=== PATIENT | female | born 1995 | race Caucasian/White ===

== ENCOUNTER 2019-06-27 03:03 | Emergency (ER) | payer BC ==
[~2019-06-27] VITALS: Ht 170.2 cm; Wt 70.3 kg
[2019-06-27 03:17] VITALS: BP 123/61
[2019-06-27 03:50] LABS: Urine Bacteria MOD /hpf (None Seen); Urine Blood 3+ /uL (Negative); Urine Mucus FEW (None Seen); Urine WBC 1128 /hpf (0 - 5); Urine WBC Clumps PRESENT /hpf (None Seen)
== END 2019-06-27 04:19 | disposition home or self-care (01) ==
LOC: ER 03:07
DX: N39.0 Urinary tract infection, site not specified (principal); R39.15 Urgency of urination; R35.0 Frequency of micturition
CPT/HCPCS: 81001

== ENCOUNTER 2019-12-16 19:38 | Emergency (ER) | payer BC ==
[~2019-12-16] VITALS: Ht 170.2 cm; Wt 72.6 kg
[2019-12-16] MEDS ORDERED: KETOROLAC TROMETH 60MG/2ML VIAL IM ONE (20:30)
[2019-12-16 21:00] VITALS: BP 136/90
== END 2019-12-16 21:32 | disposition home or self-care (01) ==
LOC: ER 19:38
DX: K05.20 Aggressive periodontitis, unspecified (principal); M27.2 Inflammatory conditions of jaws; Z87.440 Personal history of urinary (tract) infections
CPT/HCPCS: 96372; 99283; J1885

== ENCOUNTER 2022-06-29 12:03 | Emergency (ER) | payer BC, MEDICAID ==
[~2022-06-29] VITALS: Ht 167.6 cm; Wt 73.0 kg
[2022-06-29 13:14] VITALS: BP 133/90
[2022-06-29] MEDS ORDERED: IBUP600T28 PO (13:53)
[2022-06-29] MEDS ORDERED: IBUPROFEN 600 MG TAB PO ONE ×2 (14:00→14:30)
[2022-06-29] MEDS ORDERED: cefTRIAXone SOD 1,000 MG VL IM ONE (14:00)
[2022-06-29] MEDS ORDERED: [UNRECOGNIZED DRUG - CODE] OT (14:50)
== END 2022-06-29 14:48 | disposition home or self-care (01) ==
LOC: ER 12:03
DX: H66.93 Otitis media, unspecified, bilateral (principal)
CPT/HCPCS: 96372; 99283; J0696